=== PATIENT | male | born 1995 | race Caucasian/White ===

== ENCOUNTER 2018-04-21 06:49 | Day surgery (SDC) | payer OTHER ==
[~2018-04-21 06:49] MED LIST: CEFAZOLIN 2 GM/D5W RTU 2 GM/50 ML RTUPB IV ONE; CEFAZOLIN 2 GM/D5W RTU 2 GM/50 ML RTUPB IV PRN
[2018-04-21] MEDS ORDERED: FENTANYL CITRATE INJ/PF 100 MCG/2 ML AMPUL ONE ×2 (07:58→10:36)
[2018-04-21] MEDS ORDERED: MIDAZOLAM 2 MG/2 ML INJ ONE (07:58)
[2018-04-21] MEDS ORDERED: PROPOFOL INJ 200 MG/20 ML VIAL IV ONE (07:59)
[2018-04-21] MEDS ORDERED: ACETAMINOPHEN 1,000 MG/100 ML RTUPB IV ONE (07:59)
[2018-04-21] MEDS ORDERED: ONDANSETRON HCL INJ/PF 4 MG/2 ML SDV ONE (07:59)
[2018-04-21] MEDS ORDERED: BUPIVACAINE HCL 0.5 % INJ/PF 30 ML SDV ONE (08:19)
[2018-04-21] MEDS ORDERED: LIDOCAINE 1% INJ-PF (10 MG/ML) 30 ML SDV ONE (08:19)
[2018-04-21] MEDS ORDERED: DIPHENHYDRAMINE HCL 50 MG/ML VIAL IV PRN (09:14)
[2018-04-21] MEDS ORDERED: MEPERIDINE HCL/PF INJ 25 MG/1 ML DISP.SYRIN IV PRN (09:14)
[2018-04-21] MEDS ORDERED: FENTANYL CITRATE INJ/PF 100 MCG/2 ML AMPUL IV PRN ×3 (09:14)
[2018-04-21] MEDS ORDERED: OXYCODONE-ACETAMINOPHEN 5-325 MG TABLET PO PRN ×3 (09:14→10:42)
[2018-04-21] MEDS ORDERED: ONDANSETRON HCL INJ/PF 4 MG/2 ML SDV IV PRN (09:14)
[2018-04-21] MEDS ORDERED: PROMETHAZINE HCL INJ 25 MG/1 ML VIAL IV PRN ×2 (09:14)
--- NOTE | 2018-04-21 10:43 | OPERATIVE REPORT E ---
Operative Report NAME: OTTONIEL GRACE : 1995 AGE: 22Y DATE OF SURGERY: 04/21/2018 ROOM: PREOPERATIVE DIAGNOSIS: Right wrist dorsal ganglion cyst. POSTOPERATIVE DIAGNOSIS: Right wrist dorsal ganglion cyst. OPERATION: 1. Right wrist open excision, dorsal ganglion cyst. 2. Right wrist radiocarpal arthroscopy with debridement, separate incision. 3. Right wrist mid carpal arthroscopy with debridement, separate incision. SURGEON: MIKE ROSSI M.D. ANESTHESIA: General. BLOOD LOSS: Minimal. COMPLICATIONS: None. INDICATIONS: The patient is a 22-year-old [employer] with persistent discomfort associated with a mass in the dorsum of his wrist. He has failed nonoperative treatment. DESCRIPTION OF PROCEDURE: Following the induction of general anesthetic and administration of antibiotics, the patient was positioned supine on the operating room table, bony prominences were padded, and a tourniquet was placed proximally on the right arm but not inflated. The right upper extremity was sterilely prepped with ChloraPrep and draped in standard fashion. The arm was exsanguinated and the tourniquet inflated to 100 mm above systolic pressure. A transverse incision was made on the dorsal aspect of the wrist. Short incision was performed through skin and blunt dissection was performed through the subcutaneous tissue. Care was taken to identify and protect all branching nerves. The extensor tendons were mobilized and protected. A mass was encountered which appeared to be at the level of the mid carpal joint with a stalk coming from the radiocarpal joint. This mass was dissected out to the wrist capsule. A 0.5 cm portion of the wrist capsule was excised with the mass to prevent recurrence. The mass was sent to pathology. The wrist was then placed in a traction tower and 20 pounds of traction placed across the radiocarpal and mid carpal articulations. The arthroscope was placed in the region of a 3/4 portal through the open wound. A separate incision was made for a 6R portal. Needle localization, sharp incision through skin, blunt trocar entry, shaver was brought in, and debridement was performed. Probe was brought in which probed the scapholunate and lunotriquetral articulations, which were normal. Scope was then placed in the 6R portal and the shaver back in the 3/4 location. Additional debridement of the wrist capsule was performed back to a stable base. We next placed the arthroscope in the mid carpal joint in the mid carpal radial portal through the open incision. A separate incision was made for a mid carpal ulnar portal. This was localized with a needle, incision was made through skin, blunt trocar entry. Shaver was placed in the mid carpal ulnar joint. Debridement of this area was performed of the capsule. Scope was then placed in the mid carpal ulnar portal and a shaver in the mid carpal radial portal. Debridement of the dorsal capsule was performed back to a stable base. A probe was brought in, probing the scapholunate and lunotriquetral articulations through the mid carpal joint. These were found to be congruent and stable. The hand was taken out of the traction tower. The subcutaneous tissue and skin were closed with 3-0 Monocryl sutures using subcuticular technique. Steri-Strips were applied followed by a bulky sterile dressing. The patient tolerated the procedure well without complications and was brought to the recovery room in stable condition. DICTATING PHYSICIAN: MIKE ROSSI M.D. [id number] PHY#: [id number] ID: [id number] JOB#: [id number] ACCT: [id number] cc:MIKE ROSSI M.D. >
[2018-04-21] MEDS ORDERED: ONDANSETRON HCL INJ/PF 4 MG/2 ML SDV IV ONE (11:00)
[2018-04-21] MEDS ORDERED: OXYCODONE-ACETAMINOPHEN 5-325 MG TABLET ONE (11:01)
[2018-04-21 12:30] VITALS: BP 132/89
== END 2018-04-21 12:00 | disposition home or self-care (01) ==
LOC: OROUT 06:49
PROVIDERS: ATTEND Orthopaedic Surgery
DX: M67.431 Ganglion, right wrist (principal); F17.220 Nicotine dependence, chewing tobacco, uncomplicated
CPT/HCPCS: 88304 ×2; 25111; 29999; J2250; J3490; J3010; J2405; J2704; J0690; J0131; 1810